=== PATIENT | female | born 1985 | race Caucasian/White ===

== ENCOUNTER 2020-09-12 05:43 | Outpatient (RCR) | payer BC, OTHER ==
[~2020-09-12] VITALS: Ht 170.2 cm; Wt 63.6 kg
[~2020-09-12 05:43] MED LIST: BUTA1TAB55 PO; CYCL10TA9 PO; DICL100G13 TOP; FLC150T PO; HYDR-757 PO; IBP800T PO; [UNRECOGNIZED DRUG - CODE] PO
== END 2020-09-12 09:50 | disposition home or self-care (01) ==
LOC: PREOP 05:43
PROVIDERS: ATTEND Obstetrics & Gynecology
DX: Z01.812 Encounter for preprocedural laboratory examination (principal); N80.9 Endometriosis, unspecified; Z20.822 Contact with and (suspected) exposure to COVID-19
CPT/HCPCS: 87635

== ENCOUNTER 2020-09-15 06:13 | Day surgery (SDC) | payer BC, OTHER ==
[~2020-09-15] VITALS: Ht 170.2 cm; Wt 63.6 kg
[2020-09-15] VITALS (14 sets, daily range): BP systolic 106–126; BP diastolic 70–90
[2020-09-15] MEDS ORDERED: metroNIDAZOLE 500MG/100ML IVPB 100 ML IV ONE (06:30)
[2020-09-15] MEDS ORDERED: ceFAZolin INJECTION 1,000 MG in WATER (STERILE) FOR INJECTION 10 ML IV ONE (06:30)
[2020-09-15] MEDS ORDERED: LACTATED RINGERS 1,000 ML IV ONE ×2 (06:30→10:08)
[2020-09-15] MEDS ORDERED: ONDANSETRON 4 MG/2 ML (SDV) Z0FRAN ONE ×2 (06:52→06:57)
[2020-09-15] MEDS ORDERED: proPOfol 200 MG/20 ML (DIPRIVAN) VIAL IV ONE (06:57)
[2020-09-15] MEDS ORDERED: LIDOCAINE PF 2% 5 ML (XYLOCAINE) VIAL ONE (06:57)
[2020-09-15] MEDS ORDERED: ROCURONIUM 10 MG/ML 5 ML SYRINGE IV ONE (06:57)
[2020-09-15] MEDS ORDERED: SEVOFLURANE (ULTANE) 15 ML INHAL SOLN ONE ×5 (06:57→09:00)
[2020-09-15] MEDS ORDERED: MIDAZOLAM 2 MG/2 ML (VERSED) VIAL ONE (06:58)
[2020-09-15] MEDS ORDERED: fentaNYL INJECTION 100 MCG/2 ML AMP ONE (06:58)
[2020-09-15 07:09] LABS: BASOPHILS % (AUTO) 0 % (0-10); EOSINOPHILS # (AUTO) 0.1 10^3/uL (0.0-0.3); EOSINOPHILS % (AUTO) 2 % (0-10); HEMATOCRIT 43 % (35-52); HEMOGLOBIN 14.3 g/dL (11.5-16.0); LYMPHOCYTES # (AUTO) 1.4 10^3/uL (1.0-4.0); LYMPHOCYTES % (AUTO) 28 % (12-44); MEAN CORPUSCULAR HEMOGLOBIN 30 pg (25-34); MEAN CORPUSCULAR HGB CONC 33 g/dL (32-36); MEAN CORPUSCULAR VOLUME 90 fL (80-99); MEAN PLATELET VOLUME 9.6 fL (9.0-12.2); MONOCYTES # (AUTO) 0.3 10^3/uL (0.0-1.0); MONOCYTES % (AUTO) 6 % (0-12); NEUTROPHILS # (AUTO) 3.1 10^3/uL (1.8-7.8); NEUTROPHILS % (AUTO) 64 % (42-75); PLATELET COUNT 199 10^3/uL (130-400); WHITE BLOOD COUNT 4.9 10^3/uL (4.3-11.0)
[2020-09-15] MEDS ORDERED: ONDANSETRON 4 MG/2 ML (SDV) Z0FRAN IVP ONE (07:15)
--- NOTE | 2020-09-15 07:18 | Progress Note-Pre Operative ---
Pre-Operative Progress Note H&P Reviewed The H&P was reviewed, patient examined and no changes noted. Date Seen by Provider: Sep 15, 2020 Time Seen by Provider: 07:15 Date H&P Reviewed: Sep 15, 2020 Time H&P Reviewed: 07:10 Pre-Operative Diagnosis: CPP, Endometriosis JAMIL PERLA DO Sep 15, 2020 07:18
[2020-09-15] MEDS ORDERED: BUPIVACAINE 0.25% 30 ML (SENSORCAINE) VIAL ONE (07:22)
--- NOTE | 2020-09-15 07:22 | Discharge Inst-Women's Service ---
Discharge Inst-Women's Serv Depart Medication/Instructions New, Converted or Re-Newed RX: RX on Chart Problems Reviewed?: Yes Consults/Follow Up Additional Follow Up: Yes Activity Activity: Activity as Tolerated Driving Instructions: No Driving for 1 Week NO SMOKING: NO SMOKING Nothing Inside Vagina: No Douching, No [place], No Tampons Diet Discharge Diet: No Restrictions Symptoms to Report to : Bleeding Excessive, Pain Increased, Fever Over 101 Degrees F, Vaginal Bleeding Increase, Questions/Concerns For Any Problems or Questions: Contact Your Physician Skin/Wound Care Infection Signs and Symptoms: Increased Redness, Foul Odor of Wound, Increased Drainage, Skin Itchy or Has a Rash, Increased Swelling, Temperature Above 101 F Operative Area Clean and Dry: Keep Incision Clean/Dry Stitches/[place]/Dermabond: Dermabond, Care of Stitches Bathing Instructions: JAMIL Gregorio DO Sep 15, 2020 07:22
[2020-09-15] MEDS ORDERED: HYDR-34 PO (07:24)
[2020-09-15] MEDS ORDERED: IBUP-844 PO (07:24)
[2020-09-15] MEDS ORDERED: SMT80CT PO (07:24)
[2020-09-15] MEDS ORDERED: DCS100C PO (07:24)
[2020-09-15] MEDS ORDERED: DOCUSATE SODIUM 100 MG (COLACE) CAP PO PRN (07:30)
[2020-09-15] MEDS ORDERED: LACTATED RINGERS 1,000 ML IV SCH (07:30)
[2020-09-15] MEDS ORDERED: ZOLPIDEM 5 MG (AMBIEN) TAB PO PRN (07:30)
[2020-09-15] MEDS ORDERED: SIMETHICONE 80 MG (MYLICON) CHEW PO PRN (07:30)
[2020-09-15] MEDS ORDERED: CHLORASEPTIC LOZENGE MM PRN (07:30)
[2020-09-15] MEDS ORDERED: HYDROcodone/APAP 7.5 MG/325 MG (LORTAB, LORCET PLUS) TABLET PO PRN (07:30)
[2020-09-15] MEDS ORDERED: ANTACID SUSP 30 ML UDC (MYLANTA) PO PRN (07:30)
[2020-09-15] MEDS ORDERED: ONDANSETRON 4 MG/2 ML (SDV) Z0FRAN IV PRN (07:30)
[2020-09-15] MEDS ORDERED: GLYCOPYRROLATE 0.2 MG/ML (ROBINUL) 2 ML VIAL ONE (08:59)
[2020-09-15] MEDS ORDERED: NEOSTIGMINE 3 MG/3 ML VIAL ONE (08:59)
[2020-09-15] MEDS ORDERED: KETOROLAC 30 MG/ML VIAL ONE (09:14)
--- NOTE | 2020-09-15 09:16 | Anesthesia-General Post-Op ---
General Patient Condition Mental Status/LOC: Same as Preop Cardiovascular: Satisfactory Nausea/Vomiting: Absent Respiratory: Satisfactory Pain: Controlled Complications: Absent Post Op Complications Complications None Follow Up Care/Instructions Patient Instructions None needed. Anesthesia/Patient Condition Patient Condition Patient is doing well, no complaints, stable vital signs, no apparent adverse anesthesia problems. No complications reported per nursing. JAIME ALVARENGA CRNA Sep 15, 2020 09:16
[2020-09-15] MEDS: KETOROLAC 30 MG/ML VIAL IV PRN ×2 (09:21→14:33)
[2020-09-15] MEDS ORDERED: fentaNYL INJECTION 100 MCG/2 ML AMP IVP ONE (09:30)
[2020-09-15] MEDS ORDERED: MEPERIDINE (DEMEROL) INJ 50 MG/ML IVP ONE (09:30)
[2020-09-15] MEDS ORDERED: HYDROmorphone 2 MG/ML VIAL (DILAUDID) IV ONE (09:30)
[2020-09-15] MEDS ORDERED: morphine INJ 10 MG/ML 1ML (SYR OR VIAL) IVP ONE (09:30)
[2020-09-15] MEDS: ONDANSETRON 4 MG/2 ML (SDV) Z0FRAN IVP PRN ×2 (09:32→10:08)
[2020-09-15] MEDS: PROMETHAZINE INJ 25 MG/ML (PHENERGAN) AMP IVP ONE ×2 (10:01→10:12)
--- NOTE | 2020-09-15 13:45 | OPERATIVE REPORT ---
DATE OF SERVICE: PREOPERATIVE DIAGNOSES: 1. A 35-year-old female with chronic pelvic pain. 2. Dyspareunia. 3. Peritoneal endometriosis. POSTOPERATIVE DIAGNOSES: 1. A 35-year-old female with chronic pelvic pain. 2. Dyspareunia. 3. Peritoneal endometriosis. PROCEDURE: Robotic-assisted total laparoscopic hysterectomy with bilateral salpingo-oophorectomy. SURGEON: Karan Doyle DO PET WALKER: Tamiko Pendleton DNP, was necessary for manipulation and retraction throughout the procedure. ANESTHESIA: General endotracheal. ESTIMATED BLOOD LOSS: Minimal. URINE OUTPUT: 20 mL clear at the end of the procedure. FLUIDS: 1000 mL lactated Ringer's solution. FINDINGS: A grossly normal appearing uterus, bilateral fallopian tubes and ovaries; however, there were multiple dark implantations of the endometrium along the serosal surface of the uterus, fallopian tubes, bilateral ovarian fossa and anterior cul-de-sac. SPECIMEN SENT: Uterus, bilateral fallopian tubes and ovaries. INDICATIONS FOR PROCEDURE: This 35-year-old female is a patient who had been taking care of for the past seven years. There was a short timeframe in her care, where she had moved away and had sought care at another facility; however, when she moved back, she demonstrated to me multiple attempts of attempting , was unable to do so despite very aggressive efforts with reproductive endocrinology. She also had attempted Orilissa suppression and Depo Lupron suppression of her chronic pelvic pain, all of which were temporarily or were not tolerated by the patient. She eventually at this point has given up and wants to proceed with more definitive measures for her chronic pain and dyspareunia as it is becoming a hindrance with her marriage and causing issues with her intimacy with her . We discussed risks of the procedure in detail, which she was very well aware of. Risks of the procedure including risk of bleeding, infection, damage to surrounding structures including, but not limited to bowel, bladder, ureter, kidneys, possible need for reoperation, postoperative complications that may occur, risk for anesthesia, possible recovery timeframe and even . After everything was discussed with the patient in detail, consent was obtained in the preoperative area, the patient was taken to the operating room. OPERATIVE REPORT IN DETAIL: Once in the operating room, general anesthesia was found to be adequate. She was placed in dorsal lithotomy position, prepped and draped in normal sterile fashion. Timeout was performed. A Adams catheter was placed using sterile technique. Weighted speculum was inserted to the patient's vagina. Right angle retractor was used to visualize the cervix. An 0 Vicryl suture was then placed to anterior lip of the cervix and used as my retraction point. I then gently sound the uterine cavity, depth was found to be 8 cm. I selected an 8 cm Violeta uterine manipulator tip and 3 cm colpotomy ring. The manipulator tip was advanced into the uterus where the balloon was deployed and the colpotomy ring was advanced around the vaginal fornix. I then removed all the other instruments from the patient's vagina, performed change of gloves and took my attention to the abdomen where infraumbilically I infiltrated this area using 0.25% Marcaine. I made an 8 mm incision with a knife and directed Veress needle through the incision until intraperitoneal placement was confirmed using saline drop test. An opening pressure of 2 mmHg was noted. I proceeded to maximum pressure of 15 mmHg, at which point I removed the Veress needle and introduced an 8 mm blunt laparoscopic da Ricardo camera trocar. Once this was in place, I am able to confirm intraperitoneal placement using the da Ricardo laparoscope. I then had the patient placed in steep Trendelenburg after I briefly scanned the upper abdominal anatomy, which appears to be grossly normal. There was no evidence of damage upon my entry site. I then placed two lateral trocars approx 8 cm lateral to my infraumbilical trocar. The skin was infiltrated using 0.25% Marcaine. The incisions were made with a knife and the trocars were placed under direct visualization of laparoscope. Once these incisions are in place, I bring in the da Ricardo robot and docked in appropriate fashion, placed in da Ricardo vessel sealer in the left hand and monopolar [place]ria in the right hand. I started at the infundibulopelvic ligament and performed the following dissection bilaterally. I sealed and transected the infundibulopelvic ligament using the da Ricardo vessel sealer. I then grasped the round ligament, which I sealed and transected using the vessel sealer. I then grasped the entire broad ligament, which I sealed and transected down to the level of the lower uterine segment, at which point I the anterior and posterior leaflets of the broad ligament. The anterior leaflet of the broad ligament was taken around the anterior vaginal fornix, posterior leaflet was taken around to the posterior vaginal fornix. This allows me to skeletonize the uterine vessels laterally, which I bipolar cauterized and transected using the vessel sealer. I then created a colpotomy at 12 o'clock position using monopolar alexandria and took this circumferentially around the vaginal cuff amputating the cervix from the vagina. The entire specimen was then removed through the vagina. I then closed the lateral vaginal apices of the vaginal cuff using 2-0 Vicryl suture in a [id number] fashion colposuspending them to the uterosacral ligaments. I then closed the remainder of the vaginal cuff using 2-0 V-Loc in a running fashion, after which there was no active bleeding noted from any of my dissection planes. I then undocked the da Ricardo robot and proceeded with remainder of the case laparoscopically. I copiously irrigated the pelvis using normal saline. Once again, there was no active bleeding noted from any of my dissection planes. I placed FloSeal hemostatic agent over all my planes of dissection to ensure excellent postoperative hemostasis. I then had the patient taken out of steep Trendelenburg where I removed the lateral trocars under direct visualization of laparoscope. The infraumbilical trocar was left in place to release insufflation and to introduce 10 mL of 0.25% Marcaine into the peritoneal cavity for postoperative pain management. I then removed this trocar as well. The skin reapproximated using 4-0 Monocryl in interrupted subcuticular stitches. Dermabond was applied to the incision and bandage was placed in the incisions as well. A Adams catheter was left in place. The patient tolerated the procedure well and was taken to recovery area in stable condition. Lap and sponge counts were correct at the end of the procedure. Instrument counts correct as well. One gram of Ancef and 500 mg of Flagyl were given preoperatively for infection prophylaxis. Job ID: [id number] DocumentID: [id number] Dictated Date: 09/15/2020 11:35:17 [place] Press Operator Date: 09/15/2020 13:45:35 Dictated By: DO KATARZYNA GRANADOS
[2020-09-15] MEDS ORDERED: FUROSEMIDE 40 MG/4 ML INJ (LASIX) IVP NR (14:30)
[2020-09-15] MEDS ORDERED: APAP 300 MG/CODEINE 30 MG (TYLENOL #3) TAB PO PRN (15:45)
[2020-09-15] MEDS ORDERED: ACET1TAB43 PO (17:28)
[2020-09-15] MEDS ORDERED: ONDA4TAB11 PO (17:30)
[2020-09-16] MEDS ORDERED: IBUPROFEN 600 MG (MOTRIN) TAB PO SCH
== END 2020-09-15 18:15 | disposition home or self-care (01) ==
LOC: SDC 06:13 → WS 10:28 → SDC 18:15
PROVIDERS: ATTEND Obstetrics & Gynecology
DX: N83.11 Corpus luteum cyst of right ovary (principal); N83.8 Other noninflammatory disorders of ovary, fallopian tube and broad ligament; G89.29 Other chronic pain; N80.3 Endometriosis of pelvic peritoneum; E28.2 Polycystic ovarian syndrome
CPT/HCPCS: 36415; 84703; 85025; 86850; 86900; 86901; 87081

== ENCOUNTER 2021-04-08 20:41 | Emergency (ER) | payer OTHER ==
[~2021-04-08] VITALS: Ht 170.2 cm; Wt 61.2 kg
[~2021-04-08 20:41] MED LIST changes: +ACET1TAB43 PO; +DCS100C PO; +HYDR-34 PO; +IBUP-844 PO; +ONDA4TAB11 PO; +SMT80CT PO
--- OUTSIDE RECORDS SUMMARY | 2021-04-08 20:46 | XMS REPORT | CCD ---
Author Author Liana Siu Organization Elizabeth Siu MD, [facility] Address [address] [place] [address] Phone Care Team Providers Care Drier Attendant Name Role Phone Elizabeth Siu PP Unavailable CCM Unavailable Summary Purpose Interface Exchange Insurance Providers Payer name Policy type / Coverage type Covered green party ID Effective Begin Date Effective End Date Larue Producteev Commercial Insurance [id number] Unknown Family history Adopted Diagnosis Age At Onset No Family Disease Entered N/A Mother Diagnosis Age At Onset No Known Diseases N/A Father Diagnosis Age At Onset No Known Diseases N/A Social History Social History Element Codes Description Effective Dates Marital status Unknown [place] 01/05/2021 Number of children Unknown 1 01/05/2021 Employment Unknown 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/[address]: 356163716 Never smoker 01/05/[address]: 475679 Currently drinks alcohol 01/05 Frequency of drinks SNOMED CT: 462024516 <1 drinks per week 12/23 Allergies, Adverse Reactions, Alerts Substance Reaction Codes Entered Date Inactivated Date Status NO KNOWN DRUG ALLERGIES Unknown 01/05/2021 No Inactive Date Active Problems Condition Codes Effective Dates Condition Status ADHD, 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 ICD-9: 314.00 02/24/2021 Active Generalized anxiety disorder ICD-10: F41.1 ICD-9: 300.02 02/24/2021 Active Encounter for general adult medical examination withou t abnormal findings ICD- 10: Z00.00 ICD-9: V70.0 01/05/2021 Active VACCIN FOR INFLUENZA ICD-10: Z23 ICD-9: V04.81 04/20/2019 Active Medications Medication Codes Instructions Start Date Stop Date Status Fill Instructions methylphenidate 5 mg tablet RxNorm: 3306814 Take 1.5 Tab let(s) Oral two times a day 1.5 tab AM and 1.5 tab at 2pm 03/26/2021 04/24/2021 Active methylphenidate 5 mg tablet RxNorm: 2939612 Take 1 Table t(s) Oral two times a day 1 tab AM and 1 tab at 2pm 02/24/2021 03/25/2021 Inactive Medication Administered No Medication Administered data Immunizations Vaccine Codes Date Status Influenza CVX: 150 05/05/2020 Complete Influenza CVX: 150 04/20/2019 Complete Results Observation Observation Code Item Item Code Result Date S ervice Location Tsh Ord6 TSH (3rd IS) 1.95 uIU/mL 01/05/2021 Unkn own Lipid Ord30 CHOL 154 mg/dL 01/05/2021 Unknown Lipid Ord30 HDL 79.0 mg/dl 01/05/2021 Unknown Lipid Ord30 TRIG 61 mg/dL 01/05/2021 Unknown Lipid Ord30 LDL 63 mg/dL 01/05/2021 Unknown Lipid Ord30 C/HDL 1.9 Ratio 01/05/2021 Unknown Comp Metabolic Fnx287 NA 140 mEq/L 01/05/2021 Unkn own Comp Metabolic Ptg607 K 4.0 mEq/L 01/05/2021 Unkn own Comp Metabolic Fau665 CL 102 mEq/L 01/05/2021 Unkn own Comp Metabolic Lze053 CO2 30.0 mEq/L 01/05/2021 Unk nown Comp Metabolic Jvu979 ANION GAP 12 01/05/2021 Unkn own Comp Metabolic Imo407 GLUCOSE 87 mg/dL 01/05/2021 Unkn own Comp Metabolic Jri641 Creat 0.7 mg/dL 01/05/2021 Unkn own Comp Metabolic Zuu515 eGFR 109 ml/min/1.73m2 021 Unknown Comp Metabolic Seq421 BUN 6 mg/dL 01/05/2021 Unkn own Comp Metabolic Dni993 B/C Ratio 9.1 Ratio 01/05/2021 Unkn own Comp Metabolic Fyv273 CALCIUM 9.5 mg/dL 01/05/2021 Unkn own Comp Metabolic Vxp105 ALK PHOS 66 U/L 01/05/2021 Unkn own Comp Metabolic Bva195 AST(SGOT) 21 U/L 01/05/2021 Unkn own Comp Metabolic Mzu001 ALT(SGPT) 18 U/L 01/05/2021 Unkn own Comp Metabolic Taj476 BILI T 0.6 mg/dL 01/05/2021 Unkn own Comp Metabolic Dwi709 ALBUMIN 4.5 g/dL 01/05/2021 Unkn own Comp Metabolic Add757 TPRO 7.2 g/dL 01/05/2021 Unkn own Comp Metabolic Ron792 GLOB 2.7 g/dL 01/05/2021 Unkn own Comp Metabolic Srx465 A/G Ratio 1.7 Ratio 01/05/2021 Unkn own Comp Metabolic Jcg877 Osmo 276 mOsmo 01/05/2021 Unkn own Cbc With Differential Ord2 WBC 4.99 K/ul 01/06/20 21 Unknown Cbc With Differential Ord2 RBC 4.50 M/ul 01/06/20 21 Unknown Cbc With Differential Ord2 HGB 13.3 g/dl 01/06/20 21 Unknown Cbc With Differential Ord2 Neut% 50.3 % 01/06/20 21 Unknown Cbc With Differential Ord2 HCT 40.6 % 01/06/20 21 Unknown Cbc With Differential Ord2 Lymph% 41.7 % 01/06/20 21 Unknown Cbc With Differential Ord2 MCV 90.2 fl 01/06/20 21 Unknown Cbc With Differential Ord2 MCH 29.6 pg 01/06/20 21 Unknown Cbc With Differential Ord2 [place]% 5.8 % 01/06/20 21 Unknown Cbc With Differential Ord2 Eos% 2.0 % 01/06/20 21 Unknown Cbc With Differential Ord2 MCHC 32.8 pg 01/06/20 21 Unknown Cbc With Differential Ord2 PLT 216 K/ul 01/06/20 21 Unknown Cbc With Differential Ord2 Baso% 0.2 % 01/06/20 21 Unknown Cbc With Differential Ord2 Neut ABS# 2.51 K/ul 01/06/20 21 Unknown Cbc With Differential Ord2 RDW 12.5 % 01/06/20 21 Unknown Cbc With Differential Ord2 Lymph ABS# 2.08 K/ul 021 Unknown Cbc With Differential Ord2 [place] ABS# 0.3 K/ul 01/06/20 21 Unknown Cbc With Differential Ord2 Eos ABS# 0.1 K/ul 01/06/20 21 Unknown Cbc With Differential Ord2 Baso ABS# 0.0 K/ul 01/06/20 21 Unknown Procedures Procedure Codes Date IIV4 VACC NO PRSV 0.5 ML IM CPT-4: 37630 05/05/2020 IMMUNIZATION ADMIN CPT-4: 43898 05/05/2020 IIV4 VACC NO PRSV 0.5 ML IM CPT-4: 82823 05/05/2020 IIV4 VACC NO PRSV 0.5 ML IM CPT-4: 91392 04/20/2019 IMMUNIZATION ADMIN CPT-4: 33543 04/20/2019 IIV4 VACC NO PRSV 0.5 ML IM CPT-4: 98942 04/20/2019 Vital Signs Date Vital 03/26/2021 Blood Pressure 1: 112/64 Code: 8480-6 Heart Rate 1: 85 bpm Height: Code: 8302-2 SpO2: 99% Temperature: 36.1 (C) / 97.0 (F) Weight: 140 lbs 8 oz Code: 86778-3 02/24/2021 Blood Pressure 1: 120/76 Code: 8480-6 BMI: 22.2 Code: 25073-8 Heart Rate 1: 89 bpm Height: 5'7" Code: 8302-2 Respiratory Rate: 16 bpm SpO2: 98% Temperature: 36.1 (C) / 97.0 (F) Weight: 142 lbs Code: 61627-8 01/05/2021 Blood Pressure 1: 116/72 Code: 8480-6 BMI: 22.9 Code: 82633-6 Heart Rate 1: 92 bpm Height: 5'7" Code: 8302-2 Respiratory Rate: 17 bpm SpO2: 99% Temperature: 36.3 (C) / 97.3 (F) Weight: 146 lbs Code: 53471-5 Functional Status No Functional Status data Reason For Visit Reason For Visit Effective Dates Notes mental status change 03/26/2021 mental status change 02/24/2021 well woman exam (18-39 years) 01/05/2021 vaccination against influenza 05/05/2020 vaccination against influenza 04/20/2019 Encounters Encounter Performer Location Codes Date ([id number]) 40907 EST. PATIENT, LEVEL III Diagnosis: ADHD, predominantly inattentive type[ICD10: F90.0] Elizabeth Siu MD, [facility] CPT-4: 84147 03/26/2021 ([id number]) [id number] EST. PATIENT, LEVEL III Diagnosis: ADHD, predominantly inattentive type[ICD10: F90.0] Diagnosis: Generalized anxiety disorder[ICD10: F41.1] [facility] CPT-4: 86422 02/24/2021 ([id number]) PREV VISIT NEW AGE 18-39 Diagnosis: Encounter for general adult medical examination without abnormal findings[ICD10: Z00.00] [facility] CPT-4: 52992 01/05/2021 Plan of Care Planned Activity Notes Codes Status Date Visit Plan: ADHD - medication not workin g as well as patient would like - increase Methylphenidate to 1.5 tabs twice daily. Pt is to continue with current medication for treatment of the symptoms of ADHD. The pt is to call if they notice palpitations, rapid weight loss, severe insomnia that does improve. Pt is to call for any acute concerns, or if the medication does not seem to be working for improvement of the ADHD symptoms. Pt is aware of risk associated with medication use, and the danger of the medication if in the hands of someone to whom the medication was not prescribed. 03/26/2021 Appointment: Elizabeth Siu WPtel: [phone] [facility] (15 min) Moderate 03/26/2021 Patient Education: Patient Medication Summary Completed 03/26/2021 Visit Plan: ADHD - pt is to start on sti mulant medication for treatment of the symptoms of ADHD. The pt is to call if they notice palpitations, rapid weight loss, severe insomnia that does not start to improve after 2-3 days on the medication. Pt is to call for any acute concerns, or if the medication does not seem to be working for improvement of the ADHD symptoms. Pt is aware of risk associated with medication use, and the danger of the medication if in the hands of someone to whom the medication was not prescribed. methylphenidate 5mg AM and 2PM, may increase to 7.5mg bid after a week and then increase further if needed, call office. Depression - with some OCD tendencies - will wait to start on zoloft until pt has been stable on methylphenidate RTC in 1 month 02/24/2021 Appointment: Elizabeth Siu WPtel: [phone] [facility] (15 min) Moderate 02/24/2021 Patient Education: Patient Medication Summary Completed 02/24/2021 Visit Plan: Well Adult - pt was counsele d about diet, exercise, and encouraged to follow a heart healthy diet and increase activity level. The patient was instructed to RTC yearly for well adult exams and PRN for acute illnesses. The pt was also instructed to have yearly labs for check of cholesterol, thyroid, chem panel, CBC, and renal functioning. Eczema on right palm - recommended steroid cream for palm of hand 01/05/2021 [facility]ment[id number] [facility] 01/05/2021 Patient Education: Patient Medication Summary Completed 01/05/2021 Appointment: Injection 05/05/2020 Patient Education: Patient Medication Summary Completed 05/05/2020 Appointment: Injection 04/20/2019 Patient Education: Patient Medication Summary Completed 04/20/2019 Instructions Comment . ADHD - medication not working as well as patient would like - increase Methylphenidate to 1.5 tabs twice daily. Pt is to continue with current medication for treatment of the symptoms of ADHD. The pt is to call if they notice palpitations, rapid weight loss, severe insomnia that does improve. Pt is to call for any acute concerns, or if the medication does not seem to be working for improvement of the ADHD symptoms. Pt is aware of risk associated with medication use, and the danger of the medication if in the hands of someone to whom the medication was not prescribed. . ADHD - pt is to start on stimulant med ication for treatment of the symptoms of ADHD. The pt is to call if they notice palpitations, rapid weight loss, severe insomnia that does not start to improve after 2-3 days on the medication. Pt is to call for any acute concerns, or if the medication does not seem to be working for improvement of the ADHD symptoms. Pt is aware of risk associated with medi cation use, and the danger of the medication if in the hands of someone to whom the medication was not prescribed. methylphenidate 5mg AM and 2PM, may increase to 7.5mg bid after a week and then increase further if needed, call office. Depression - with some OCD tendencies - will wait to start on zoloft until pt has been stable on methylphenidate RTC in 1 month vitamin D3 2000 units daily during /summer and 5000 daily during fall/winter . Well Adult - pt was counseled about di et, exercise, and encouraged to follow a heart healthy diet and increase activity level. The patient was instructed to RTC yearly for well adult exams and PRN for acute illnesses. The pt was also instructed to have yearly labs for check of cholesterol, thyroid, chem panel, CBC, and renal functioning. Eczema on right palm - recommended steroid cream for palm of hand Medical Equipment No Medical Equipment data Health Concerns Section Health Concerns data not found Goals Section Goals data not found Interventions Section Interventions data not found Health Status Evaluations/Outcomes Section Health Status Evaluations/Outcomes data not found Advance Directives No Advance Directive data
[2021-04-08] MEDS ORDERED: LACTATED RINGERS 1,000 ML IV ONE (21:17)
[2021-04-08 21:28] LABS: BASOPHILS % (AUTO) 0 % (0-10); EOSINOPHILS # (AUTO) 0.3 10^3/uL (0.0-0.3); EOSINOPHILS % (AUTO) 3 % (0-10); HEMATOCRIT 42 % (35-52); HEMOGLOBIN 13.8 g/dL (11.5-16.0); LYMPHOCYTES # (AUTO) 1.6 10^3/uL (1.0-4.0); LYMPHOCYTES % (AUTO) 15 % (12-44); MEAN CORPUSCULAR HEMOGLOBIN 29 pg (25-34); MEAN CORPUSCULAR HGB CONC 33 g/dL (32-36); MEAN CORPUSCULAR VOLUME 88 fL (80-99); MEAN PLATELET VOLUME 9.5 fL (9.0-12.2); MONOCYTES # (AUTO) 0.7 10^3/uL (0.0-1.0); MONOCYTES % (AUTO) 6 % (0-12); NEUTROPHILS # (AUTO) 8.4 10^3/uL (1.8-7.8); NEUTROPHILS % (AUTO) 76 % (42-75); PLATELET COUNT 206 10^3/uL (130-400)
[2021-04-08 21:38] LABS: ALBUMIN 4.7 GM/DL (3.2-4.5); CHLORIDE 102 MMOL/L (98-107); POTASSIUM 3.8 MMOL/L (3.6-5.0); SODIUM 139 MMOL/L (135-145)
[2021-04-08 21:40] LABS: GLUCOSE 97 MG/DL (70-105)
[2021-04-08 21:41] LABS: CARBON DIOXIDE 26 MMOL/L (21-32)
[2021-04-08 21:42] LABS: BILIRUBIN,TOTAL 0.8 MG/DL (0.1-1.0)
[2021-04-08 21:44] LABS: ALKALINE PHOSPHATASE 80 U/L (40-136); CREATININE SERUM 0.77 MG/DL (0.60-1.30); GFR ESTIMATED 86
[2021-04-08 21:45] LABS: BUN/CREATININE RATIO 14
[2021-04-08 21:47] LABS: ALANINE AMINOTRANSFERASE 17 U/L (0-55)
[2021-04-08] MEDS ORDERED: RX-OSELTAMIVIR 75 MG (TAMIFLU) BOX OF 10 PO STA (21:56)
[2021-04-08] MEDS ORDERED: ONDANSETRON 4 MG/2 ML (SDV) Z0FRAN IVP ONE (22:00)
--- NOTE | 2021-04-08 22:02 | Diagnostic Imaging Report ---
EXAMINATION: Chest 1 view. HISTORY: Cough. Fever. COMPARISON: None available. FINDINGS: The lung volumes are normal. No focal consolidation is seen. No large pleural effusion or pneumothorax is seen. The cardiomediastinal silhouette is normal in size and contour. No acute osseous abnormality is seen. IMPRESSION: No acute pleuroparenchymal process. Dictated by: Dictated on workstation # [id number]
[2021-04-08 22:32] LABS: BILIRUBIN,URINE NEGATIVE (NEGATIVE); CLARITY,URINE SL CLOUDY; COLOR,URINE YELLOW; GLUCOSE, URINE (UA) NEGATIVE (NEGATIVE); KETONES,URINE TRACE (NEGATIVE); LEUKOCYTE ESTERASE ,URINE 1+ (NEGATIVE); NITRITE,URINE NEGATIVE (NEGATIVE); PROTEIN,URINE NEGATIVE (NEGATIVE)
--- NOTE | 2021-04-08 22:40 | ED General ---
General Chief Complaint: Fever-Adult/Adol Stated Complaint: CHILL/BODYACHE/COUGH/FEVER/FATIGUE Nursing Triage Note: Pt ambulatory to ER room 10 with complaints of fever/body aches/head ache onset this afternoon. Source of Information: Patient, Family Exam Limitations: No Limitations History of Present Illness Date Seen by Provider: Apr 08, 2021 Time Seen by Provider: 20:49 Initial Comments Mrs. Lemus is a 35-year-old woman who presents to the emergency room with flulike symptoms including fever, myalgia, backache, neck ache, nausea, diarrhea, and mild cough that started earlier today. She also reports some diarrhea for the past few days. She was treated last week for probable urinary tract infection with Macrobid. She finished that course of antibiotics. She is noted to be tachycardic on assessment. She has been vaccinated with the Moderna COVID-19 vaccine. Allergies and Home Medications Allergies Coded Allergies: No Known Drug Allergies (Unverified , 12/20/13) Patient Home Medication List Home Medication List Reviewed: Yes Acetaminophen with Codeine (Acetaminophen-Cod #3 Tablet) 1 Each Tablet, 1 EACH PO Q4H Prescribed by: JSEUS PERKINS on 09/15/20 1728 Docusate Sodium (Dok) 100 Mg Capsule, 100 MG PO BID PRN for CONSTIPATION-1ST LINE Prescribed by: JAMIL PERLA on 09/15/20 0724 Ibuprofen (Ibu) 600 Mg Tablet, 600 MG PO Q6H Prescribed by: JAMIL PERLA on 09/15/20 0724 Ondansetron (Ondansetron Odt) 4 Mg Tab.rapdis, 4 MG PO Q4H Prescribed by: JESUS PERKINS on 09/15/20 1730 Simethicone (Mi-Acid) 80 Mg Tab.chew, 40 MG PO TID PRN for INDIGESTION 2ND LINE Prescribed by: JAMIL PERLA on 09/15/20 0724 Review of Systems Review of Systems Constitutional: see HPI EENTM: no symptoms reported Respiratory: see HPI Cardiovascular: see HPI Gastrointestinal: see HPI Genitourinary: see HPI : No Musculoskeletal: see HPI Skin: other (Hypersensitivity to touch) Psychiatric/Neurological: No Symptoms Reported Hematologic/Lymphatic: No Symptoms Reported Immunological/Allergic: no symptoms reported Past Uzlngxo-Bqnqyz-Sicznj Hx Patient Social History Tobacco Use?: No Smoking Status: Never a Smoker Smokeless Tobacco Frequency: Never a User Use of E-Cig and/or Vaping dev: No Use of E-Cig and/or Vaping Jose Angel: Never a User Substance use?: No Alcohol Use?: No Pt feels they are or have been: No Immunizations Up To Date PED Vaccines UTD: No First/Initial COVID19 Vaccinat: September 2019 Second COVID19 Vaccination Sunny: October 2019 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 oz. 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 as Tested Skin: Normal Color, Warm/Dry Progress/Results/Core Measures Suspected Sepsis SIRS Temperature: Pulse: 129 Respiratory Rate: 18 Laboratory Tests 04/08/21 21:05: White Blood Count 11.0 Blood Pressure 124 /85 Mean: 98 Laboratory Tests 04/08/21 21:05: Creatinine 0.77, Platelet Count 206, Total Bilirubin 0.8 Results/Orders Lab Results Laboratory Tests Test 04/08/21 21:00 04/08/21 21:05 04/08/21 22:24 Range/Units Influenza Type A Antigen NEGATIVE NEGATIVE Influenza Type B Antigen POSITIVE H NEGATIVE White Blood Count 11.0 4.3-11.0 10^3/uL Red Blood Count 4.83 3.80-5.11 10^6/uL Hemoglobin 13.8 11.5-16.0 g/dL Hematocrit 42 35-52 % Mean Corpuscular Volume 88 80-99 fL Mean Corpuscular Hemoglobin 29 25-34 pg Mean Corpuscular Hemoglobin Concent 33 32-36 g/dL Red Cell Distribution Width 12.1 10.0-14.5 % Platelet Count 206 130-400 10^3/uL Mean Platelet Volume 9.5 9.0-12.2 fL Immature Granulocyte % (Auto) 0 % Neutrophils (%) (Auto) 76 H 42-75 % Lymphocytes (%) (Auto) 15 12-44 % Monocytes (%) (Auto) 6 0-12 % Eosinophils (%) (Auto) 3 0-10 % Basophils (%) (Auto) 0 0-10 % Neutrophils # (Auto) 8.4 H 1.8-7.8 10^3/uL Lymphocytes # (Auto) 1.6 1.0-4.0 10^3/uL Monocytes # (Auto) 0.7 0.0-1.0 10^3/uL Eosinophils # (Auto) 0.3 0.0-0.3 10^3/uL Basophils # (Auto) 0.0 0.0-0.1 10^3/uL Immature Granulocyte # (Auto) 0.0 0.0-0.1 10^3/uL Sodium Level 139 135-145 MMOL/L Potassium Level 3.8 3.6-5.0 MMOL/L Chloride Level 102 98-107 MMOL/L Carbon Dioxide Level 26 21-32 MMOL/L Anion Gap 11 5-14 MMOL/L Blood Urea Nitrogen 11 7-18 MG/DL Creatinine 0.77 0.60-1.30 MG/DL Estimat Glomerular Filtration Rate 86 BUN/Creatinine Ratio 14 Glucose Level 97 70-105 MG/DL Calcium Level 10.0 8.5-10.1 MG/DL Corrected Calcium 8.5-10.1 MG/DL Total Bilirubin 0.8 0.1-1.0 MG/DL Aspartate Amino Transf (AST/SGOT) 20 5-34 U/L Alanine Aminotransferase (ALT/SGPT) 17 0-55 U/L Alkaline Phosphatase 80 40-136 U/L C-Reactive Protein High Sensitivity 0.58 H 0.00-0.50 MG/DL Total Protein 8.0 6.4-8.2 GM/DL Albumin 4.7 H 3.2-4.5 GM/DL Serum Test, Qualitative NEGATIVE NEGATIVE Urine Color YELLOW Urine Clarity SL CLOUDY Urine pH 6.0 5-9 Urine Specific [place] 1.015 L 1.016-1.022 Urine Protein NEGATIVE NEGATIVE Urine Glucose (UA) NEGATIVE NEGATIVE Urine Ketones TRACE H NEGATIVE Urine Nitrite NEGATIVE NEGATIVE Urine Bilirubin NEGATIVE NEGATIVE Urine Urobilinogen 0.2 < = 1.0 MG/DL Urine Leukocyte Esterase 1+ H NEGATIVE Urine RBC (Auto) NEGATIVE NEGATIVE Urine RBC NONE /HPF Urine WBC 5-10 H /HPF Urine Crystals PRESENT H /LPF Urine Amorphous Sediment FEW HAL URATES H /LPF Urine Bacteria TRACE /HPF Urine Casts NONE /LPF Urine Mucus NEGATIVE /LPF Urine Culture Indicated YES My Orders Orders - JEROD MCDOWELL MD Cbc With Automated Diff (04/08/21 20:49) Comprehensive Metabolic Panel (04/08/21 20:49) Hs C Reactive Protein (04/08/21 20:49) Hcg,Qualitative Serum (04/08/21 20:49) Ua Culture If Indicated (04/08/21 20:49) Ed Iv/Invasive Line Start (04/08/21 20:49) Chest 1 View, Ap/Pa Only (04/08/21 20:49) Lactated Ringers (Lr 1000 Ml Iv Solution (04/08/21 21:17) Influenza A & B Antigens (04/08/21 21:00) Ondansetron Injection (Zofran Injectio (04/08/21 22:00) Rx-Oseltamivir Caps (Rx-Tamiflu Caps) (04/08/21 21:56) Urine Culture (04/08/21 22:24) Medications Given in ED Current Medications Medications Dose Ordered Sig/Bridget Route Start Time Stop Time Status Last Admin Dose Admin Lactated Ringer's 1,000 ml @ ud STK-MED ONCE IV 04/08/21 21:17 04/08/21 21:20 DC 04/08/21 21:22 999 MLS/HR Ondansetron HCl 4 mg ONCE ONCE IVP 04/08/21 22:00 04/08/21 22:01 DC 04/08/21 22:09 4 MG Vital Signs/I&O 04/08/21 21:00 Temp 38.9 Pulse 129 Resp 18 B/P (MAP) 124/85 (98) Capillary Refill : Less Than 3 Seconds Blood Pressure Mean: 98 Progress Note #1: Time: 22:38 Progress Note Patient received a liter of IV fluid with a modest improvement in her heart rate. Nasal swab returned positive for influenza B. She was started on a take- home pack of Tamiflu. Zofran was given for nausea. Labs were not consistent with COVID-19. Patient therefore declined COVID-19 testing. Progress Note #2: Time: 22:59 Progress Note UA demonstrated 5-10 WBCs and trace bacteria. Since she is having no urinary symptoms at this time she would like to see culture results before deciding to treat or observe. See discharge instructions. Diagnostic Imaging Diagonstic Imaging: Xray Plain Films/CT/US/NM/MRI: chest Comments Chest x-ray viewed by me and report reviewed. See report below: NAME: MODESTO LEMUS [facility] REC#: [id number] PT STATUS: REG ER : 1985 PHYSICIAN: JEROD MCDOWELL MD ADMIT DATE: 04/08/21/ER Signed Date of Exam:04/08/21 CHEST 1 VIEW, AP/PA ONLY EXAMINATION: Chest 1 view. HISTORY: Cough. Fever. COMPARISON: None available. FINDINGS: The lung volumes are normal. No focal consolidation is seen. No large pleural effusion or pneumothorax is seen. The cardiomediastinal silhouette is normal in size and contour. No acute osseous abnormality is seen. IMPRESSION: No acute pleuroparenchymal process. Dictated by: Dictated on workstation # [id number] Dict: 04/08/212200 Trans: 04/08/212206 [facility] [id number] Interpreted by: RANJAN MENDIOLA DO Electronically signed by: RANJAN MENDIOLA DO 04/08/212206 Departure Impression Primary Impression: Influenza B Disposition: 01 HOME, SELF-CARE Condition: Improved Departure-Patient Inst. Decision time for Depature: 22:40 Referrals: ALBERT COX MD (PCP/Family) Primary Care Physician Patient Instructions: Flu, Adult (DC) Add. Discharge Instructions: Drink plenty of clear liquids to stay well-hydrated. Complete the entire 5 days of Tamiflu as prescribed. You may use Zofran for nausea and vomiting. Call with questions or concerns. Return to care if you have worsening of symptoms. All discharge instructions reviewed with patient and/or family. Voiced understanding. JEROD MCDOWELL MD Apr 08, 2021 22:40
[2021-04-08 22:41] LABS: AMORPHOUS SEDIMENT,UR FEW AMOR URATES /LPF; BACTERIA,URINE TRACE /HPF
[2021-04-08 23:05] VITALS: BP 126/77
== END 2021-04-08 23:05 | disposition home or self-care (01) ==
LOC: EDUNIT# 20:41 → ER 20:43
DX: J10.1 Influenza due to other identified influenza virus with other respiratory manifestations (principal)
CPT/HCPCS: 36415; 71045; 80053; 81000; 84703; 85025; 86141; 87077; 87088; 87804

== ENCOUNTER 2021-07-23 08:29 | Outpatient (RCR) | payer OTHER ==
[~2021-07-23 08:29] MED LIST changes: -DCS100C PO; +DOCU-239 PO
== END 2021-07-24 | disposition home or self-care (01) ==
PROVIDERS: ATTEND Nurse Practitioner Family
DX: M25.551 Pain in right hip (principal); M24.211 Disorder of ligament, right shoulder

== ENCOUNTER → 2021-08-24 | Outpatient (RCR) | payer OTHER | END | disposition home or self-care (01) | PROVIDERS: ATTEND Nurse Practitioner Family | DX: M24.211 Disorder of ligament, right shoulder (principal); M25.551 Pain in right hip ==

== ENCOUNTER 2021-09-18 08:34 | Outpatient (RCR) | payer OTHER | END 2021-09-21 | disposition home or self-care (01) | PROVIDERS: ATTEND Nurse Practitioner Family | DX: M24.211 Disorder of ligament, right shoulder (principal); M25.551 Pain in right hip ==

== ENCOUNTER 2021-10-20 08:30 | Outpatient (RCR) | payer OTHER | END 2021-10-22 | disposition home or self-care (01) | PROVIDERS: ATTEND Nurse Practitioner Family | DX: M24.211 Disorder of ligament, right shoulder (principal); M25.551 Pain in right hip ==

== ENCOUNTER 2021-11-17 08:28 | Outpatient (RCR) | payer OTHER ==
[~2021-11-17 08:28] MED LIST changes: +ACET-11 PO; -ACET1TAB43 PO
== END 2021-11-21 | disposition home or self-care (01) ==
PROVIDERS: ATTEND Nurse Practitioner Family
DX: M24.211 Disorder of ligament, right shoulder (principal); M25.551 Pain in right hip

== ENCOUNTER 2021-11-27 08:30 | Outpatient (RCR) | payer OTHER | END 2021-12-11 10:19 | disposition home or self-care (01) | PROVIDERS: ATTEND Nurse Practitioner Family | DX: M24.211 Disorder of ligament, right shoulder (principal); M25.551 Pain in right hip ==

== ENCOUNTER → 2022-06-07 | Outpatient (CLI) | payer OTHER ==
--- NOTE | 2022-06-07 14:37 | Diagnostic Imaging Report ---
INDICATION: THORACIC SPINE PAIN. TECHNIQUE: AP, Lateral and Swimmers imaging of the thoracic spine CORRELATION STUDY: None FINDINGS: The thoracic spinal alignment appearing unremarkable. Vertebral body heights and disc spaces are fairly well maintained. No fracture or malalignment is seen. The cervical thoracic junction somewhat limited in visualization. No suggestion for acute bony abnormality. IMPRESSION: No radiographic evidence for acute abnormality of the thoracic spine. Dictated by: Dictated on workstation # [id number]
== END ==
LOC: RAD 13:51
PROVIDERS: ATTEND Family Medicine
DX: M54.6 Pain in thoracic spine (principal)
CPT/HCPCS: 72072

== ENCOUNTER → 2022-12-07 | Outpatient (CLI) | payer OTHER ==
[~2022-12-07] MED LIST changes: +GADOTERATE 0.5 MMOL/ML (CLARISCAN) 15 ML VIAL IV ONE
--- NOTE | 2022-12-07 16:41 | Diagnostic Imaging Report ---
EXAMINATION: MRI of the abdomen and pelvis with and without contrast. TECHNIQUE: Multiplanar, multisequence MR images of the abdomen and pelvis were obtained with and without intravenous contrast. HISTORY: Endometriosis COMPARISON: None available. FINDINGS: Liver: No suspicious liver lesions. No steatosis. No surface nodularity. Ducts: No biliary ductal dilation. Gallbladder: Normal. Pancreas: Normal. Spleen: Normal. Adrenals: Normal. Kidneys: No suspicious lesions. No hydronephrosis. Bowel: The bowel is normal in caliber. No obstruction or inflammation. Reproductive organs: The uterus and ovaries are not seen. No MR evidence of endometriosis. No pelvic mass. Other: No lymphadenopathy. Visualized portions of the thorax are normal. No suspicious osseus lesions. IMPRESSION: 1. No evidence for endometriosis. Dictated by: Dictated on workstation # [id number]
== END ==
LOC: RAD 12:43
PROVIDERS: ATTEND Family Medicine
DX: N80.9 Endometriosis, unspecified (principal); R10.9 Unspecified abdominal pain